=== PATIENT | female | born 1960 | race Caucasian/White ===

== ENCOUNTER → 2016-10-27 | Outpatient (CLI) | payer OTHER ==
[~2016-10-27] MED LIST: AMBIEN10 MG PO; BUPROPION HCL100 MG PO; CARISOPRODOL350 MG PO; HYDROXYZINE HCL25 MG PO; KLONOPIN TAB 00.5 MG PO; LOSARTAN POTAS100 MG PO; LYRICA100 MG PO; MOBIC15 MG PO; NORCO 10-325 T1 EACH PO; TOPROL XL 100100 MG PO; VENTOLIN HFA 66.7 GM INH; ZOFRAN4 MG PO
== END ==
LOC: MAMO 13:32
DX: Z12.31 Encounter for screening mammogram for malignant neoplasm of breast (principal)
CPT/HCPCS: G0202

== ENCOUNTER → 2016-11-13 | Outpatient (CLI) | payer OTHER | LOC: MAMO 11-11 09:30 | DX: R92.8 Other abnormal and inconclusive findings on diagnostic imaging of breast (principal) ==

== ENCOUNTER → 2016-11-25 | Outpatient (CLI) | payer OTHER | LOC: MAMO 13:37 | DX: R92.8 Other abnormal and inconclusive findings on diagnostic imaging of breast (principal); Z90.710 Acquired absence of both cervix and uterus | CPT/HCPCS: 76641-LT; G0206 ==

== ENCOUNTER → 2021-01-14 | Outpatient (CLI) | payer OTHER | LOC: KOH-I 11:22 | DX: R06.00 Dyspnea, unspecified (principal); R60.1 Generalized edema; I10 Essential (primary) hypertension; J98.4 Other disorders of lung | CPT/HCPCS: 71046 ==

== ENCOUNTER → 2021-01-21 | Outpatient (CLI) | payer OTHER | LOC: ECHO 08:52 | DX: I50.9 Heart failure, unspecified (principal); I51.7 Cardiomegaly | CPT/HCPCS: ECHO; 93306 ==